=== PATIENT | female | born 1995 | race Caucasian/White ===

== ENCOUNTER 2017-05-31 06:13 | Inpatient (IN) ==
[2017-05-31 07:54] LABS: Apearance,Urine Slightly Hazy (Clear); Bacteria,Urine Moderate /HPF (Few); Bilirubin,Urine Negative (Negative); Blood, Urine Negative (Negative); Glucose,Urine (UA) Negative (Negative); Hyaline Casts,Urine 1 /LPF (0-3); Ketones,Urine 5 mg/dL (Negative); Mucus,Urine Occasional /LPF (Occasional); Nitrite,Urine Negative (Negative); Protein,Urine Negative; Squamous Epithelial Cell,Urine Occasional /HPF (0-10); Urine Color Yellow (Yellow); Urine Urobilinogen < 2.0 EU/DL (0.2-1.0); WBC,Urine 4 /HPF (0-6)
[2017-05-31] MEDS: LACTATED RINGERS 1,000 ML IV SCH ×3 (11:05→18:02)
[2017-05-31] MEDS ORDERED: ONDANSETRON 4 MG/2 ML VIAL IV PRN ×2 (11:17→18:32)
[2017-05-31 11:43] LABS: Basophils % 0.4 % (0.0-0.8); Eosinophils % 0.4 % (0.00-10.9); Hematocrit 40.5 VOL% (35.7-47.0); Hemoglobin 13.8 GM/DL (12.0-16.0); Immature Granulocytes Absolute 0.08 #; Lymphocytes # 1.7 10*3/uL (1.4-4.0); Lymphocytes % 20.3 % (21.3-54.2); Mean Corpuscular HGB Conc 34.1 GM/DL (32-36); Mean Corpuscular Hemoglobin 30 PG (27-34); Mean Corpuscular Volume 87.7 FL (87-102); Monocytes # 0.6 10*3/uL (0.11-0.8); Monocytes % 7.3 % (1.7-12.7); Neutrophils # 5.9 10*3/uL (1.4-7.4); Neutrophils % 70.6 % (38.7-73.9); Platelet Count 257 T/CUMM (130-400); Red Blood Count 4.62 MC/CUMM (3.8-5.5); Red Cell Distribution Width 13.2 % (9.3-17.3); White Blood Count 8.4 T/CUMM (4-12)
[2017-05-31 11:47] LABS: Apearance,Urine CLEAR (Clear); Bacteria,Urine Occasional /HPF (Few); Bilirubin,Urine Negative (Negative); Blood, Urine Negative (Negative); Glucose,Urine (UA) Negative (Negative); Ketones,Urine 5 mg/dL (Negative); Mucus,Urine Occasional /LPF (Occasional); Nitrite,Urine Negative (Negative); Protein,Urine Negative; RBC,Urine 1 /HPF (0-4); Squamous Epithelial Cell,Urine Occasional /HPF (0-10); Urine Color Yellow (Yellow); Urine Specific Gravity 1.018 (1.001-1.035); Urine Urobilinogen < 2.0 EU/DL (0.2-1.0); WBC,Urine 1 /HPF (0-6)
[2017-05-31 12:10] LABS: Alanine Aminotransferase 12 U/L (13-56); Albumin 2.7 G/DL (3.4-5.0); Alkaline Phosphatase 153 U/L (45-117); Aspartate Amino Transferase 9 U/L (0-37); Bilirubin,Total < 0.39 MG/DL (0.2-1.0); Blood Urea Nitrogen 6 MG/DL (7-18); Calcium 8.4 MG/DL (8.5-10.1); Glucose 72 MG/DL (74-106); Osmolality,Calculated 271.7 MOS/KG (273-304); Potassium 3.8 MMOL/L (3.5-5.1); Sodium 138 MMOL/L (136-145); Total Protein 6.5 G/DL (6.4-8.3)
[2017-05-31] MEDS ORDERED: MEPERIDINE 50 MG/1 ML VIAL IV ONE (12:53)
[2017-05-31] MEDS ORDERED: PROMETHAZINE 25 MG/1 ML VIAL IM ONE (12:53)
[2017-05-31] MEDS ORDERED: ceFAZolin 2,000 MG in PREMIX 1 EACH IV ONE (14:35)
[2017-05-31] MEDS ORDERED: OXYTOCIN 10 UNIT/ML VIAL IM ONE (14:35)
[2017-05-31] MEDS ORDERED: CITRIC ACID/SODIUM CITRATE 30 ML UDCUP PO ONE (14:40)
[2017-05-31] MEDS ORDERED: FAMOTIDINE 20 MG/2 ML VIAL IV ONE (14:40)
[2017-05-31] MEDS ORDERED: OXYTOCIN/LR 30 UNIT/1,000 ML BAG IV ONE (15:00)
[2017-05-31] MEDS ORDERED: PROPOFOL 200 MG/20 ML VIAL IV ONE (17:40)
--- NOTE | 2017-05-31 18:30 | OB/GYN History & Physical ---
History of Present Illness Chief complaint: Uterine contraction, 39 weeks History of present illness: Ms. Melissa is a 21 year old female 21-year-old 4 2 AB's 1 living EDC is 06/07/2017 admitted with uterine contractions. Patient is a previous section, fetus is very active contractions were noted. Uterine scar is intact. No vaginal bleeding no leaking of fluid. Estimated gestational age 39 weeks gestation. Risks benefits thoroughly discussed all parties were in agreement. Home Medications Medication Instructions Recorded Confirmed Type Vit No.124/Iron/Folic 1 each PO DAILY 09/23/15 05/31/17 History [ Vitamin Tablet] Allergies Allergy/AdvReac Type Severity Reaction Status Date / Time No Known Allergies Allergy Verified 09/23/15 20:21 Medical,Surgical,& Family Hx - Medical History Rheumatology: No history of;: Fibromyalgia, Gout, Myasthenia Gravis, Rheumatoid Arthritis, Rheumatological Problems Musculoskeletal: History of: Back/Neck Problems (scoliosis), Musculoskeletal Problems No history of: Amputation, Degenerative Disk Disease, Herniated Disk, Osteoporosis, Musculoskeletal Cancer Reproductive: History of: Reproductive Problems (cyst lt ovary) No history of: Ectopic , Complication Other: No history of: Anesthesia Reactions, Anaphylaxis - Surgical History Thoracic Surgeries: Patient denies;: Organ Transplant Reproductive Surgeries: Patient denies;: Section, Genitourinary Surgery, Hysterectomy, Tubal Ligation - Family History Family History: Reports;: Family Heart Disease (PGF, MGF), Family Hypertension ( dad) Denies;: Family Anesthesia Reaction, Family Cancer, Family Diabetes, Family Psychiatric Problems, Family Stroke - Social History Smoking Status: Never smoker Type of Drug Use: None Exam [employer] - Constitutional Vitals: Vital Signs Temp Pulse Resp BP 05/31/17 16:00 98.3 F 77 18 110/64 05/31/17 11:21 97.5 F L 83 20 121/74 General appearance: no acute distress, mild distress - Antepartum / Post Antepartum Exam Cervix - Dilatation: 1 cm Effacement: 60 per Station: -2 - Head Head exam: Present: normal inspection - Eye Eye exam: Present: EOMI Pupils: Present: BERYL - ENT ENT exam: Present: normal exam - Neck Neck exam: Present: normal inspection - Respiratory Respiratory exam: Present: clear to auscultation bilaterally - Breast Breasts: as per HPI Menstruation: as per HPI - Cardiovascular Cardiovascular exam: Present: regular rate and rhythm - GI/Abdominal GI/Abdominal exam: Present: normal bowel sounds, soft - Extremities Exam Extremities exam: Present: normal inspection - Neurological Exam Neurological exam: Present: alert, oriented X3 - Psychiatric Psychiatric exam: Present: normal affect - Skin Skin exam: Present: normal color Assessment and Plan (1) Status post section Status: Acute Assessment and plan: Irregular uterine contractions, previous section at 39 weeks gestation. This patient will be scheduled for a repeat section risks benefits thoroughly discussed all parties in agreement. Current Visit: No Results - Labs CBC & BMP: 05/31/17 11:29 05/31/17 11:29
[2017-05-31] MEDS ORDERED: OXYTOCIN/LR 20 UNIT/1,000 ML BAG IV ONE (18:32)
[2017-05-31] MEDS ORDERED: MAGNESIUM HYDROXIDE SUSP 30 ML UDCUP PO PRN (18:32)
[2017-05-31] MEDS ORDERED: RHO(D) IMMUNE GLOBULIN 300 MCG SYRINGE IM ONE (18:32)
[2017-05-31] MEDS ORDERED: ACETAMINOPHEN 325 MG TABLET PO PRN (18:32)
--- NOTE | 2017-05-31 18:32 | Operative Note ---
Date of procedure: 05/31/17 Procedure: Preoperative diagnosis: 39 weeks gestation, active labor previous section Postoperative diagnosis: Same Anesthesia:[] Regional anesthesia Estimated blood loss: [] 250 Surgeon: Dr. Posadas Findings: [] Female infant, delivered at 1805 p.m., weight was 6 lbs. 10 oz., Apgars was 9 at 1 minute and 9 at 5 minutes, cord blood and cord gas was obtained Complications: None Procedure: Low transverse section The patient was taken to the operating suite heart tones were obtained prior to and after regional anesthesia was obtained. She was placed in supine position her abdomen was prepped and draped in usual manner for major abdominal surgery. Through an abdominal incision the skin, subcutaneous, fascial layer and peritoneal the abdomen was entered. The bladder flap was created and a low transverse incision was made.. Fluid was clear and normal amount X, Apgars, the placenta was delivered and sent to lab for further evaluation. Injected with intrauterine Pitocin. The first layer of the uterus was closed with #1 Vicryl in a continuous locking manner. Close to imbricate the first layer with #1 Vicryl. The peritoneum was approximated with #2-0 Vicryl.[] All the last sponges and instruments were accounted for -2.) #2-0 Vicryl. Fascia was approximated with #0-0 Maxon.. The skin was approximated with nithya. She tolerated procedure well and was taken to recovery room in stable condition. Surgeon / Physician: Travis Posadas Results - Labs CBC & BMP: 05/31/17 11:29 05/31/17 11:29 Discharge Plan - Discharge Medications No Action Vit No.124/Iron/Folic [ Vitamin Tablet] 1 each PO DAILY - Follow Up or Referral - Forms/Instructions
[2017-05-31 18:39] LABS: Cord Arterial Blood HCO3 22.6 MMOL/L
[2017-05-31 18:41] LABS: Cord Venous Blood HCO3 20.5 MMOL/L; Cord Venous Blood PCO2 35.2 MMHG; Cord Venous Blood PO2 28.3 MMHG
[2017-05-31] MEDS ORDERED: MORPHINE 10 MG/10 ML VIAL ONE (18:42)
[2017-05-31] MEDS ORDERED: ePHEDrine 50 MG/ML AMP ONE (18:42)
[2017-05-31] MEDS: IBUPROFEN 800 MG TABLET PO PRN (20:00)
[2017-05-31] MEDS: DOCUSATE SODIUM 100 MG CAPSULE PO SCH (20:24)
[2017-06-01] MEDS: IBUPROFEN 800 MG TABLET PO PRN ×2 (04:00→19:58)
[2017-06-01 04:02] LABS: Basophils % 0.3 % (0.0-0.8); Eosinophils # 0.1 10*3/uL (0.0-0.87); Eosinophils % 0.5 % (0.00-10.9); Hematocrit 36.4 VOL% (35.7-47.0); Hemoglobin 12.3 GM/DL (12.0-16.0); Immature Granulocytes % 0.5 %; Immature Granulocytes Absolute 0.05 #; Lymphocytes # 2.3 10*3/uL (1.4-4.0); Lymphocytes % 23.5 % (21.3-54.2); Mean Corpuscular HGB Conc 33.8 GM/DL (32-36); Mean Corpuscular Hemoglobin 30 PG (27-34); Mean Platelet Volume 10.6 FL (9.6-12.0); Monocytes # 0.7 10*3/uL (0.11-0.8); Monocytes % 7.5 % (1.7-12.7); Neutrophils # 6.6 10*3/uL (1.4-7.4); Neutrophils % 67.7 % (38.7-73.9); Platelet Count 199 T/CUMM (130-400); Red Blood Count 4.09 MC/CUMM (3.8-5.5); Red Cell Distribution Width 13.1 % (9.3-17.3); White Blood Count 9.7 T/CUMM (4-12)
[2017-06-01] MEDS: LACTATED RINGERS 1,000 ML IV SCH ×2 (05:29)
--- NOTE | 2017-06-01 11:12 | Progress Note ---
Assessment and Plan (1) Status post section Status: Acute Assessment and plan: Irregular uterine contractions, previous section at 39 weeks gestation. This patient will be scheduled for a repeat section risks benefits thoroughly discussed all parties in agreement. Current Visit: No Family Medicine PN Sub Interval history: Status post vaginal day #1 Physical exam is unremarkable Abdomen soft, uterus is firm, no excessive bleeding Perineum is intact Extremities well with no limits neurologic grossly intact Assessment plan We will discharge in a.m. follow-up in our office approximately 6 weeks postoperative day #1 Status post section repeat Abdomen soft, bowel sounds present, incision sites intact Uterus is nice and firm Extremities well with no limits neurologic grossly intact Assessment and plan We will discharge this patient in a.m. continue with present therapy without any major complaints at this time. Exam (Progress Note) - Constitutional Vitals: Period Temp Pulse Resp BP Sys/Ariza Pulse Ox Last 24 Hr 97.4 F-98.3 F 69-86 18-20 110-133/64-79 Results - Labs CBC & BMP: 06/01/17 03:51 05/31/17 11:29 Quality Measures - VTE Contraindication to Pharmacological VTE Prophylaxis: Clinical assessment deems Pt at low risk, no prophalaxis needed
[2017-06-01] MEDS: MULTIVITAMIN (PRENATAL) TABLET PO SCH (15:54)
[2017-06-01] MEDS: DOCUSATE SODIUM 100 MG CAPSULE PO SCH ×3 (15:54→21:09)
[2017-06-01] MEDS: SIMETHICONE CHEW 80 MG TABLET PO PRN ×2 (16:15→21:55)
[2017-06-01] MEDS ORDERED: HYDROCORTISONE 2.5% RECTAL CREAM 30 GM TUBE TOP PRN (21:47)
[2017-06-01] MEDS ORDERED: WITCH HAZEL PADS 100/JAR TOP PRN (21:48)
[2017-06-01] MEDS ORDERED: BISACODYL 10 MG SUPP RECTAL PRN (21:54)
--- NOTE | 2017-06-01 23:08 | Anesthesia Post-Op ---
Anesthesia Post OP - Post Ansesthetic Evaluation Patient seen in post op: Yes Resp: within normal limits CV: within normal limits Mental: within normal limits Temp: within normal limits [id number]: within normal limits Nausea and Vomiting: within normal limits Pain: within normal limits
[2017-06-02] MEDS: IBUPROFEN 800 MG TABLET PO PRN (06:05)
[2017-06-02 07:45] VITALS: BP 122/77
[2017-06-02] MEDS: DOCUSATE SODIUM 100 MG CAPSULE PO SCH (09:07)
[2017-06-02] MEDS: MULTIVITAMIN (PRENATAL) TABLET PO SCH (09:07)
--- NOTE | 2017-06-02 09:23 | Discharge Summary ---
Hospital Course - Hospital Course Hospital Course: Postoperative day #2 Status post section, repeat section 2 Patient ambulated well, positive bowel movements, voiding well, no excessive pain or discomfort noted. Abdominal incisions intact Extremities well with no limits neurologic grossly intact Status post section 2 We will discharge this patient postoperative instructions were thoroughly given and she is in full agreement Diagnosis - Discharge Diagnosis (1) Status post section Status: Acute Discharge Plan - Discharge Data Condition at Discharge: Stable Discharge Diet: advance to your usual diet Activity: resume usual activities as tolerated, increase activity as tolerated Hygiene: may shower Weight Bearing at Discharge: weight bear as tolerated Driving: not until seen by doctor Contact your physician if you experience:: fever over 101, Bleeding - Discharge Medications New HYDROcodone/ACETAMIN 5-325 [[place] 5-325] 2 tablet PO Q6H PRN #30 tablet PRN Reason: Pain Severe (8-10) Ibuprofen Tab [Motrin Tab] 800 mg PO Q8H PRN #30 tablet PRN Reason: Pain Severe (8-10) No Action Vit No.124/Iron/Folic [ Vitamin Tablet] 1 each PO DAILY - Follow Up or Referral - Forms/Instructions Exam - Constitutional Vitals: Period Temp Pulse Resp BP Sys/Ariza Pulse Ox Last 24 Hr 96.9 F-97.6 F 83-87 16-20 111-131/62-77 98-99 Discharge Results Procedures and tests throughout hospitalization: Pending Orders 05/31/17 Urine Culture Routine DS: Provider Date of admission: 05/31/17 10:50 Primary care physician: Maria Del Carmen Diaz MD Attending physician on admission: Travis Posadas MD Consults: 05/31/17 11:17 Consult to Anesthesiology [CONS] Routine Consulting Provider: Reason for Anesthesiology: Epidural Consult Comment: Epidural for pain managment 05/31/17 18:32 Consult to Irs Agent [CONS] Routine Consult Irs Agent: Breast Feeding Discharging clinician: Travis Posadas MD
== END 2017-06-02 13:55 | disposition home or self-care (01) | DRG 540 ==
LOC: N.LDOUT 06:13 → N.LD 06:15 → N.OB 06-01 21:34
PROVIDERS: ADMIT Obstetrics & Gynecology; ATTEND Obstetrics & Gynecology
PROC: LDCSECT (ICD-10-PCS; 2017-05-31 12:30)

== ENCOUNTER 2018-08-23 19:21 | Inpatient (IN) ==
[2018-08-23] MEDS ORDERED: fentaNYL 100 MCG/2 ML VIAL IV STA (19:42)
[2018-08-23] MEDS ORDERED: SODIUM CHLORIDE 0.9% 500 ML IV STA (19:42)
[2018-08-23] MEDS ORDERED: ORPHENADRINE 60 MG/2 ML VIAL IV STA (19:42)
[2018-08-23] MEDS ORDERED: AMPICILLIN/SULBACTAM 3,000 MG in SODIUM CHLORIDE 0.9% 100 ML IV STA (19:42)
[2018-08-23] MEDS ORDERED: ONDANSETRON 4 MG/2 ML VIAL IV STA (19:42)
[2018-08-23 20:33] LABS: Basophils % 0.1 % (0.0-0.8); Eosinophils % 0.5 % (0.00-10.9); Immature Granulocytes % 0.4 %; Immature Granulocytes Absolute 0.03 #; Lymphocytes # 1.2 10*3/uL (1.4-4.0); Lymphocytes % 14.6 % (21.3-54.2); Mean Corpuscular HGB Conc 33.3 GM/DL (32-36); Mean Corpuscular Hemoglobin 30 PG (27-34); Mean Corpuscular Volume 88.7 FL (87-102); Mean Platelet Volume 11.6 FL (9.6-12.0); Monocytes # 0.4 10*3/uL (0.11-0.8); Monocytes % 5.5 % (1.7-12.7); Neutrophils # 6.3 10*3/uL (1.4-7.4); Neutrophils % 78.9 % (38.7-73.9); Platelet Count 186 T/CUMM (130-400); Red Blood Count 3.72 MC/CUMM (3.8-5.5); Red Cell Distribution Width 12.3 % (9.3-17.3)
[2018-08-23 20:42] LABS: PT Patient Result 10.6 SECS; Partial Thromboplastin Time 29.2 SECS (0-40)
[2018-08-23 21:07] LABS: Alanine Aminotransferase 10 U/L (13-56); Albumin 2.9 G/DL (3.4-5.0); Alkaline Phosphatase 60 U/L (45-117); Aspartate Amino Transferase 7 U/L (0-37); Bilirubin,Total < 0.39 MG/DL (0.2-1.0); Blood Urea Nitrogen 5 MG/DL (7-18); Calcium 8.1 MG/DL (8.5-10.1); Glucose 87 MG/DL (74-106); Osmolality,Calculated 272.5 MOS/KG (273-304); Potassium 3.8 MMOL/L (3.5-5.1); Sodium 139 MMOL/L (136-145); Total Protein 5.9 G/DL (6.4-8.3)
[2018-08-23] MEDS ORDERED: miSOPROStol 200 MCG TABLET PO ONE (21:27)
[2018-08-23] MEDS ORDERED: DEXTROSE 5% NACL 0.9% 1,000 ML IV SCH (21:30)
[2018-08-23 23:30] LABS: Basophils % 0.2 % (0.0-0.8); Eosinophils % 0.8 % (0.00-10.9); Hematocrit 27.8 VOL% (35.7-47.0); Immature Granulocytes % 0.6 %; Immature Granulocytes Absolute 0.03 #; Lymphocytes # 1.4 10*3/uL (1.4-4.0); Lymphocytes % 26.8 % (21.3-54.2); Mean Corpuscular HGB Conc 32.4 GM/DL (32-36); Mean Corpuscular Hemoglobin 29 PG (27-34); Mean Corpuscular Volume 89.1 FL (87-102); Mean Platelet Volume 11.8 FL (9.6-12.0); Monocytes # 0.3 10*3/uL (0.11-0.8); Monocytes % 4.9 % (1.7-12.7); Neutrophils # 3.5 10*3/uL (1.4-7.4); Neutrophils % 66.7 % (38.7-73.9); Platelet Count 168 T/CUMM (130-400); Red Blood Count 3.12 MC/CUMM (3.8-5.5); Red Cell Distribution Width 12.5 % (9.3-17.3); White Blood Count 5.3 T/CUMM (4-12)
[2018-08-23] MEDS: MEPERIDINE 50 MG/1 ML VIAL IV PRN (23:35)
[2018-08-23] MEDS: ONDANSETRON 4 MG/2 ML VIAL IV PRN (23:37)
[2018-08-23] MEDS ORDERED: LACTATED RINGERS 1,000 ML IV SCH (23:45)
[2018-08-24] MEDS ORDERED: oxyCODONE/ACETAMINOPHEN 5-325 MG TABLET PO PRN (02:22)
[2018-08-24] MEDS ORDERED: KETOROLAC 30 MG/1 ML VIAL IV PRN (03:35)
[2018-08-24] MEDS ORDERED: OXYTOCIN/LR 20 UNIT/1,000 ML BAG IV ONE (05:10)
[2018-08-24 06:33] LABS: Basophils % 0.2 % (0.0-0.8); Hemoglobin 7.9 GM/DL (12.0-16.0); Immature Granulocytes % 0.5 %; Immature Granulocytes Absolute 0.02 #; Neutrophils # 2.5 10*3/uL (1.4-7.4); Red Cell Distribution Width 12.6 % (9.3-17.3)
[2018-08-24 06:43] LABS: Eosinophils # 0.1 10*3/uL (0.0-0.87); Eosinophils % 1.7 % (0.00-10.9); Hematocrit 24.1 VOL% (35.7-47.0); Lymphocytes # 1.3 10*3/uL (1.4-4.0); Lymphocytes % 31.7 % (21.3-54.2); Mean Corpuscular HGB Conc 32.8 GM/DL (32-36); Mean Corpuscular Hemoglobin 29 PG (27-34); Mean Corpuscular Volume 88.9 FL (87-102); Mean Platelet Volume 11.9 FL (9.6-12.0); Monocytes # 0.3 10*3/uL (0.11-0.8); Monocytes % 7.3 % (1.7-12.7); Neutrophils % 58.6 % (38.7-73.9); Platelet Count 157 T/CUMM (130-400); Red Blood Count 2.71 MC/CUMM (3.8-5.5); White Blood Count 4.2 T/CUMM (4-12)
[2018-08-24] MEDS ORDERED: OXYTOCIN/LR 30 UNIT/1,000 ML BAG IV ONE (10:07)
[2018-08-24] MEDS ORDERED: ceFAZolin 2,000 MG in PREMIX 1 EACH IV ONE (10:13)
[2018-08-24] MEDS ORDERED: SODIUM CHLORIDE 0.9% 1,000 ML IV PRN ×2 (10:15→10:16)
[2018-08-24] MEDS ORDERED: PHENYLEPHRINE 1 MG/10 ML SYRINGE IV ONE (10:50)
[2018-08-24] MEDS ORDERED: MIDAZOLAM 2 MG/2 ML VIAL ONE (10:50)
[2018-08-24] MEDS ORDERED: fentaNYL 100 MCG/2 ML VIAL ONE (10:50)
[2018-08-24] MEDS ORDERED: SEVOFLURANE 1 UNIT/15 MINUTE INH ONE (10:51)
[2018-08-24] MEDS ORDERED: PROPOFOL 200 MG/20 ML VIAL IV ONE (10:51)
[2018-08-24] MEDS: ONDANSETRON 4 MG/2 ML VIAL IV PRN (11:02)
[2018-08-24] MEDS: MEPERIDINE 50 MG/1 ML VIAL IV PRN (11:05)
[2018-08-24] MEDS ORDERED: IBUPROFEN 800 MG TABLET PO ONE (17:28)
[2018-08-24 18:47] LABS: Hematocrit 27.5 VOL% (35.7-47.0); Hemoglobin 9.3 GM/DL (12.0-16.0)
[2018-08-24 19:06] VITALS: BP 90/47
== END 2018-08-24 19:24 | disposition home or self-care (01) | DRG 544 ==
LOC: EDUNIT# → EDBD → N.ED 19:21 → N.EDINP 21:26 → N.OB 21:56 → N.LD 08-24 10:45 → N.OB 08-24 11:45
PROVIDERS: ADMIT Obstetrics & Gynecology; ATTEND Obstetrics & Gynecology